=== PATIENT | female | born 1985 ===

== ENCOUNTER 2019-03-04 05:34 | Emergency (ER) | payer BC ==
[2019-03-04] MEDS ORDERED: Sodium Chloride 0.9% 1,000 ML IV ONE (05:54)
[2019-03-04] MEDS ORDERED: Ondansetron 4 MG/2 ML SDV IVPUSH ONE ×2 (05:54→08:19)
--- NOTE | 2019-03-04 05:54 | EDM.PDOC ---
ED HPI GENERAL MEDICAL PROBLEM - General Chief Complaint: Gastrointestinal Problem Stated Complaint: VOMITING, ABDOMINAL PAIN Time Seen by Provider: 03/04/19 05:49 Source of Information: Reports: Patient History Limitations: Reports: No Limitations - History of Present Illness INITIAL COMMENTS - FREE TEXT/NARRATIVE: 33-year-old female presents the emergency room chief complaint of vomiting for the past 4 hours. Patient last ate some chicken patient denies chills and fever. Patient has pain all along her abdomen. Patient denies back pain. Patient denies abdominal surgery or gallbladder disease . Onset: Today Duration: Day(s): Location: Reports: Abdomen Severity: Moderate Improves with: Reports: None Context: Reports: Sick Contact Associated Symptoms: Reports: Nausea/Vomiting abdomen Pain Score (Numeric/FACES): 10 - Related Data Allergies Allergy/AdvReac Type Severity Reaction Status Date / Time No Known Allergies Allergy Verified 10/06/15 09:08 Home Meds: Home Meds . [No Known Home Meds] 03/04/19 [History] Past Medical History - Past Health History Medical/Surgical History: Denies Medical/Surgical History Social & Family History - Family History Family Medical History: Noncontributory - Tobacco Use Smoking Status *Q: Never Smoker - Recreational Drug Use Recreational Drug Use: No ED ROS GENERAL - Review of Systems Review Of Systems: Comprehensive ROS is negative, except as noted in HPI. Constitutional: Reports: No Symptoms HEENT: Reports: No Symptoms Respiratory: Reports: No Symptoms Cardiovascular: Reports: No Symptoms Endocrine: Reports: No Symptoms GI/Abdominal: Reports: Abdominal Pain, Diarrhea, Vomiting : Reports: No Symptoms Musculoskeletal: Reports: No Symptoms Skin: Reports: No Symptoms Hematologic/Lymphatic: Reports: No Symptoms Immunologic: Reports: No Symptoms ED EXAM, GI/ABD - Physical Exam Exam: See Below Exam Limited By: No Limitations General Appearance: Alert, WD/WN, No Apparent Distress Eyes: Bilateral: Normal Appearance Ears: Normal External Exam, Normal Canal, Hearing Grossly Normal Nose: Normal Inspection, Normal Mucosa, No Blood Throat/Mouth: Normal Inspection, Normal Lips, Normal Teeth, Normal Gums Head: Atraumatic, Normocephalic Neck: Normal Inspection, Supple, Non-Tender Respiratory/Chest: No Respiratory Distress, Lungs Clear, Normal Breath Sounds Cardiovascular: Normal Peripheral Pulses, Regular Rate, Rhythm, No Edema, No Murmur, No Rub GI/Abdominal Exam: Normal Bowel Sounds, No Organomegaly, No Abnormal Bruit, No Mass, Pelvis Stable, Tender, Abnormal Bowel Sounds (Female) Exam: Deferred Rectal (Female) Exam: Deferred Back Exam: Normal Inspection, Full Range of Motion Extremities: Normal Inspection, Normal Range of Motion Neurological: Alert, Oriented, CN II-XII Intact, Normal Cognition Psychiatric: Normal Affect, Normal Mood Skin Exam: Warm, Dry, Intact, Normal Color, No Rash Course - Vital Signs Text/Narrative:: 33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 Patient has had symptoms for 1 day. On exam patient had generalized abdominal pain was tender throughout. Patient has no flank pain. O CBC was drawn patient a white count of 14.9 with a shift. H&H was normal. Patient had a negative test. Patient was given a liter fluid, Zofran and pain medicine. More comfortable waiting for CT scan. I will sign case out to Dr. Roland at 740 a.m. Last Recorded V/S: Last Vital Signs Temp 97.2 F 03/04/19 05:38 Pulse 100 03/04/19 05:38 Resp 18 03/04/19 05:38 BP 138/82 03/04/19 05:38 Pulse Ox 95 03/04/19 05:38 - Orders/Labs/Meds Orders: Active Orders 24 hr Category Date Time Status Abdomen Pelvis wo Cont [CT] Stat Exams 03/04/19 06:30 Taken UA RFX SHEYLA AND CULT IF INDIC [URIN] Stat Lab 03/04/19 07:30 Received Labs: Laboratory Tests 03/04/19 03/04/19 03/04/19 Range/Units 05:55 05:55 05:55 WBC 14.98 H (4.0-11.0) K/uL RBC 5.16 (4.30-5.90) M/uL Hgb 15.2 (12.0-16.0) g/dL Hct 44.0 (36.0-46.0) % MCV 85.3 (80.0-98.0) fL MCH 29.5 (27.0-32.0) pg MCHC 34.5 (31.0-37.0) g/dL RDW Std Deviation 39.3 (28.0-62.0) fl RDW Coeff of Ira 13 (11.0-15.0) % Plt Count 298 (150-400) K/uL MPV 11.00 (7.40-12.00) fL Neut % (Auto) 87.8 H (48.0-80.0) % Lymph % (Auto) 7.1 L (16.0-40.0) % [place] % (Auto) 4.2 (0.0-15.0) % Eos % (Auto) 0.8 (0.0-7.0) % Baso % (Auto) 0.1 (0.0-1.5) % Neut # (Auto) 13.2 H (1.4-5.7) K/uL Lymph # (Auto) 1.1 (0.6-2.4) K/uL [place] # (Auto) 0.6 (0.0-0.8) K/uL Eos # (Auto) 0.1 (0.0-0.7) K/uL Baso # (Auto) 0.0 (0.0-0.1) K/uL Nucleated RBC % 0.0 /100WBC Nucleated RBCs # 0 K/uL Sodium 138 (136-145) mmol/L Potassium 4.2 (3.5-5.1) mmol/L Chloride 102 (98-107) mmol/L Carbon Dioxide 26.9 (21.0-32.0) mmol/L BUN 16 (7.0-18.0) mg/dL Creatinine 0.9 (0.6-1.0) mg/dL Est Cr Clr Drug Dosing 69.66 mL/min Estimated GFR (MDRD) > 60.0 ml/min Glucose 119 H (74-106) mg/dL Calcium 8.8 (8.5-10.1) mg/dL Total Bilirubin 0.5 (0.2-1.0) mg/dL AST 22 (15-37) IU/L ALT 32 (14-63) IU/L Alkaline Phosphatase 93 (46-116) U/L Total Protein 9.0 H (6.4-8.2) g/dL Albumin 4.6 (3.4-5.0) g/dL Globulin 4.4 H (2.6-4.0) g/dL Albumin/Globulin Ratio 1.1 (0.9-1.6) HCG, Qual NEGATIVE (NEG) Meds: Medications Discontinued Medications Generic Name Dose Route Start Last Admin Trade Name Parvez PRN Reason Stop Dose Admin Sodium Chloride 1,000 mls @ 999 mls/hr 03/04/19 05:54 03/04/19 06:02 Normal Saline IV 03/04/19 06:54 999 mls/hr .Bolus ONE Administration Ketorolac Tromethamine 30 mg 03/04/19 06:33 03/04/19 06:37 Toradol IVPUSH 03/04/19 06:34 30 mg ONETIME ONE Administration Morphine Sulfate 4 mg 03/04/19 06:30 03/04/19 06:38 Morphine IVPUSH 03/04/19 06:31 Not Given ONETIME ONE Ondansetron HCl 4 mg 03/04/19 05:54 03/04/19 06:02 Zofran IVPUSH 03/04/19 05:55 4 mg ONETIME ONE Administration Departure - Departure Time of Disposition: 07:43 Disposition: Still A Patient 30 Condition: Good Clinical Impression: Abdominal pain - Discharge Information Referrals: PCP,None [Primary Care Provider] - Forms: ED Department Discharge Sepsis Event Note - Evaluation Sepsis Screening Result: No Definite Risk - Focused Exam Vital Signs: Vital Signs Temp Pulse Resp BP Pulse Ox 03/04/19 05:38 97.2 F 100 18 138/82 95 Date Exam was Performed: 03/04/19 Time Exam was Performed: 07:40 - My Orders Last 24 Hours: My Active Orders 03/04/19 06:30 Abdomen Pelvis wo Cont [CT] Stat 03/04/19 07:30 UA RFX SHEYLA AND CULT IF INDIC [URIN] Stat - Assessment/Plan Last 24 Hours: My Active Orders 03/04/19 06:30 Abdomen Pelvis wo Cont [CT] Stat 03/04/19 07:30 UA RFX SHEYLA AND CULT IF INDIC [URIN] Stat
[2019-03-04 06:22] LABS: BLOOD UREA NITROGEN,BUN 16 mg/dL (7.0-18.0); CARBON DIOXIDE,CO2 26.9 mmol/L (21.0-32.0); CHLORIDE,CL 102 mmol/L (98-107); GLUCOSE RANDOM 119 mg/dL (74-106); POTASSIUM,K 4.2 mmol/L (3.5-5.1); SODIUM,NA 138 mmol/L (136-145)
[2019-03-04] MEDS ORDERED: Morphine 4 MG/ML Syringe IVPUSH ONE (06:30)
[2019-03-04] MEDS ORDERED: Ketorolac 30 MG/ML SDV IVPUSH ONE (06:33)
--- NOTE | 2019-03-04 08:11 | CT ---
INDICATION: Abdominal pain. TECHNIQUE: CT of the abdomen and pelvis without intravenous contrast. Coronal and sagittal reconstructions. COMPARISON: None. FINDINGS: The unenhanced liver, gallbladder, spleen, pancreas, kidneys, and adrenal glands are normal in appearance. No hydronephrosis. No urinary calculi. The unenhanced bladder, uterus, and adnexa are unremarkable. No bowel dilation. Negative appendix. No intraperitoneal free air or fluid. Multiple small periaortic and right lower quadrant mesenteric lymph nodes are likely reactive. No lymphadenopathy by size criteria. The lung bases are clear. IMPRESSION: No acute findings in the abdomen or pelvis on this noncontrast exam. Please note that all CT scans at this facility use dose modulation, iterative reconstruction, and/or weight-based dosing when appropriate to reduce radiation dose to as low as reasonably achievable. Dictated by Aggie Pittman MD @ Mar 04 2019 8:02AM Signed by Dr. Aggie Pittman @ Mar 04 2019 8:10AM
== END 2019-03-04 09:35 | disposition home or self-care (01) ==
LOC: MW.ED 05:34
DX: R10.11 Right upper quadrant pain (principal)
CPT/HCPCS: 36415; 74176; 80053; 81003; 84703; 85025; 96361; 96374; 96375; 96376; 99284; J1885; J2405; J7030